=== PATIENT | male | born 1960 | race Caucasian/White ===

== ENCOUNTER → 2018-08-29 | Outpatient (CLI) | payer OTHER | END | disposition home or self-care (01) | LOC: RAD 10:37 | PROVIDERS: ATTEND Family Medicine | DX: J90 Pleural effusion, not elsewhere classified (principal); Z87.891 Personal history of nicotine dependence; I50.9 Heart failure, unspecified | CPT/HCPCS: 71046 ==

== ENCOUNTER 2019-09-25 10:46 | Outpatient (CLI) | payer BC | END 2019-09-25 23:59 | disposition home or self-care (01) | LOC: RAD 10:46 | PROVIDERS: ATTEND Family Medicine | DX: R05 Cough (principal); I51.7 Cardiomegaly; M47.814 Spondylosis without myelopathy or radiculopathy, thoracic region | CPT/HCPCS: 71046 ==

== ENCOUNTER 2019-10-05 12:30 | Inpatient (IN) | payer BC ==
[~2019-10-05] VITALS: Ht 182.9 cm; Wt 115.1 kg
[2019-10-05 13:36] LABS: ALBUMIN 2.6 g/dL (3.4-5.0); ANION GAP 3 mmol/L (5-15); CALCIUM 8.2 mg/dL (8.5-10.1); CHLORIDE 111 mmol/L (98-107); CREATININE 1.76 mg/dL (0.7-1.3)
[2019-10-05 13:40] LABS: TROPONIN I 0.053 ng/mL (0.000-0.045)
[2019-10-05 14:07] LABS: MICROSCOPIC AUTO
--- NOTE | 2019-10-05 14:07 | NUR ---
REHABILITATION SPECIALIST: PT AMBULATORY WITH STEADY GAIT TO ROOM AT THIS TIME.
[2019-10-05 14:20] LABS: BASOPHILS # (AUTO) 0.01 x10^3/uL (0-0.1); BASOPHILS % (AUTO) 0 % (0-1); EOSINOPHILS # (AUTO) 0.18 x10^3/uL (0-0.4); EOSINOPHILS % (AUTO) 3 % (1-7); LYMPHOCYTES # (AUTO) 1.42 x10^3/uL (1-3.4); LYMPHOCYTES % (AUTO) 22 % (22-44); MD NO; MEAN CORPUSCULAR HEMOGLOBIN 29.5 pg (27.5-34.5); MEAN CORPUSCULAR VOLUME 89.4 fL (81-97); MEAN PLATELET VOLUME 10.3 fL (7.4-10.4); MONOCYTES # (AUTO) 0.65 x10^3/uL (0.2-0.8); MONOCYTES % (AUTO) 10 % (2-9); NEUTROPHILS # (AUTO) 4.28 x10^3/uL (1.8-6.8); NEUTROPHILS % (AUTO) 65 % (42-75); PLATELET COUNT 201 x10^3/uL (130-400); RED BLOOD COUNT 4.16 x10^6/uL (4.38-5.82); RED CELL DISTRIBUTION WIDTH 15.3 % (9.4-14.8)
--- NOTE | 2019-10-05 14:40 | NUR ---
FIRST CONTACT WITH PT. PT C/O SWELLING TO BOTH LEGS HAS MOVED TO BOTH TESTICLES STARTING FRI. PT DENIES ANY OTHER SYMPTOMS. PT'S AOX4. RESPS EVEN AND UNLABORED. BP/SPO2 MONITORS IN PLACE. CALL LIGHT WITHIN REACH.
[2019-10-05] MEDS ORDERED: METF500T17 PO (14:42)
[2019-10-05] MEDS ORDERED: GLIP10TA13 PO (14:43)
[2019-10-05] MEDS ORDERED: BENA10TA6 PO (14:44)
[2019-10-05] MEDS ORDERED: FENO145T32 PO (14:44)
[2019-10-05] MEDS ORDERED: FURO20TA3 PO (14:45)
--- NOTE | 2019-10-05 14:57 | NUR ---
PT AMB TO BR WITH STEADY GAIT.
[2019-10-05] MEDS ORDERED: SODIUM CHLORIDE FLUSH 10ML SYR IVF PRN (16:00)
[2019-10-05] MEDS ORDERED: ACETAMINOPHEN 325 MG TABLET PO PRN (16:00)
[2019-10-05] MEDS ORDERED: DEXTROSE 50%, 50ML SYRINGE IVPush PRN (16:00)
[2019-10-05] MEDS: INSULIN LISPRO 100 UNITS/ML, PEN SQ-INSULIN SCH ×2 (16:00→21:17)
[2019-10-05] MEDS ORDERED: ONDANSETRON ODT 4 MG PO PRN (16:00)
[2019-10-05] MEDS ORDERED: ONDANSETRON 2MG/ML, 2ML IVPush PRN (16:00)
[2019-10-05] MEDS ORDERED: morphine SULFATE 10 MG/ML, 1ML IVPush PRN (16:00)
[2019-10-05] MEDS ORDERED: GLUCAGON 1 MG IM PRN (16:00)
[2019-10-05] MEDS ORDERED: BACLOFEN 10 MG TABLET PO PRN (16:00)
[2019-10-05] MEDS ORDERED: hydrALAzine 20 MG/ML, 1ML IVPush PRN (16:00)
[2019-10-05] MEDS ORDERED: DEXTROSE 4 GM TAB.CHEW PO PRN (16:00)
[2019-10-05] MEDS ORDERED: HEPARIN 5,000 UNITS/ML, 1ML ONE (16:24)
[2019-10-05] MEDS: HEPARIN 5,000 UNITS/ML, 1ML SQ SCH (16:31)
--- NOTE | 2019-10-05 16:32 | NUR ---
PT MEDICATED PER EMAR. PT TOLERATED WELL.
--- NOTE | 2019-10-05 16:32 | NUR ---
BG 84 AT THIS TIME. NO INSULIN NEEDED.
--- NOTE | 2019-10-05 16:36 | NUR ---
WARM BLACKETS GIVEN AT THIS TIME.
--- NOTE | 2019-10-05 17:19 | NUR ---
PT AMBULATES WELL TO BATHROOM INDEPENDENTLY.
--- NOTE | 2019-10-05 17:26 | NUR ---
report given to hayley suárez. all questions answered.
[2019-10-05] MEDS: FUROSEMIDE 40 MG/4 ML IV SCH (18:16)
[2019-10-05 19:47] VITALS: BP 177/77
[2019-10-05] MEDS: SODIUM CHLORIDE FLUSH 10ML SYR IVF SCH (20:39)
[2019-10-05] MEDS: AMLODIPINE 5 MG TABLET PO SCH (20:39)
[2019-10-06] MEDS: HEPARIN 5,000 UNITS/ML, 1ML SQ SCH ×3 (03:00→17:39)
[2019-10-06 04:17] VITALS: BP 150/72
[2019-10-06] MEDS ORDERED: EMPA25TA PO (06:07)
[2019-10-06 06:52] LABS: BASOPHILS # (AUTO) 0.02 x10^3/uL (0-0.1); BASOPHILS % (AUTO) 0 % (0-1); EOSINOPHILS # (AUTO) 0.16 x10^3/uL (0-0.4); EOSINOPHILS % (AUTO) 3 % (1-7); LYMPHOCYTES # (AUTO) 1.46 x10^3/uL (1-3.4); LYMPHOCYTES % (AUTO) 23 % (22-44); MD NO; MEAN CORPUSCULAR HEMOGLOBIN 29.3 pg (27.5-34.5); MEAN CORPUSCULAR VOLUME 88.8 fL (81-97); MEAN PLATELET VOLUME 9.7 fL (7.4-10.4); MONOCYTES # (AUTO) 0.65 x10^3/uL (0.2-0.8); MONOCYTES % (AUTO) 10 % (2-9); NEUTROPHILS # (AUTO) 3.97 x10^3/uL (1.8-6.8); NEUTROPHILS % (AUTO) 64 % (42-75); PLATELET COUNT 182 x10^3/uL (130-400); RED BLOOD COUNT 3.91 x10^6/uL (4.38-5.82); RED CELL DISTRIBUTION WIDTH 15.4 % (9.4-14.8)
[2019-10-06 06:59] LABS: CHLORIDE 108 mmol/L (98-107)
[2019-10-06] MEDS: INSULIN LISPRO 100 UNITS/ML, PEN SQ-INSULIN SCH ×4 (07:00→21:00)
[2019-10-06 07:34] LABS: ANION GAP 5 mmol/L (5-15); CALCIUM 7.9 mg/dL (8.5-10.1); CREATININE 1.61 mg/dL (0.7-1.3)
[2019-10-06 07:50] VITALS: BP 152/72
[2019-10-06] MEDS: FUROSEMIDE 40 MG/4 ML IV SCH ×2 (10:13→17:39)
[2019-10-06] MEDS: SODIUM CHLORIDE FLUSH 10ML SYR IVF SCH ×2 (10:13→21:14)
[2019-10-06 13:15] VITALS: BP 158/85
[2019-10-06] MEDS: CARVEDILOL 3.125 MG TABLET PO SCH (17:40)
[2019-10-06 18:56] VITALS: BP 160/82
[2019-10-06 19:24] LABS: % IRON SATURATION 17 % (20-55); IRON LEVEL 47 mcg/dL (65-175); TOTAL IRON BINDING CAPACITY 283 mcg/dL (250-450)
[2019-10-06 19:27] LABS: TRANSFERRIN 243 mg/dL (200-360); TROPONIN I 0.054 ng/mL (0.000-0.045)
[2019-10-06] MEDS: DIPHENHYDRAMINE 50 MG CAPSULE PO PRN (21:13)
[2019-10-06] MEDS: AMLODIPINE 5 MG TABLET PO SCH (21:13)
[2019-10-07 01:37] VITALS: BP 149/75
[2019-10-07] MEDS: HEPARIN 5,000 UNITS/ML, 1ML SQ SCH ×4 (02:00→17:38)
[2019-10-07 05:35] LABS: BASOPHILS # (AUTO) 0.02 x10^3/uL (0-0.1); BASOPHILS % (AUTO) 0 % (0-1); EOSINOPHILS # (AUTO) 0.16 x10^3/uL (0-0.4); EOSINOPHILS % (AUTO) 3 % (1-7); LYMPHOCYTES # (AUTO) 1.76 x10^3/uL (1-3.4); LYMPHOCYTES % (AUTO) 31 % (22-44); MD NO; MEAN CORPUSCULAR HGB CONC 32.7 g/dL (33.2-36.2); MEAN CORPUSCULAR VOLUME 88.6 fL (81-97); MEAN PLATELET VOLUME 9.7 fL (7.4-10.4); MONOCYTES # (AUTO) 0.57 x10^3/uL (0.2-0.8); MONOCYTES % (AUTO) 10 % (2-9); NEUTROPHILS # (AUTO) 3.22 x10^3/uL (1.8-6.8); NEUTROPHILS % (AUTO) 56 % (42-75); PLATELET COUNT 195 x10^3/uL (130-400); RED BLOOD COUNT 4.02 x10^6/uL (4.38-5.82); RED CELL DISTRIBUTION WIDTH 15.4 % (9.4-14.8)
[2019-10-07 05:46] LABS: ANION GAP 6 mmol/L (5-15); CALCIUM 8.4 mg/dL (8.5-10.1); CHLORIDE 107 mmol/L (98-107)
[2019-10-07 05:51] LABS: CHOL/HDL RATIO 3.9; CHOLESTEROL, TOTAL 144 mg/dL (140-239); CREATININE 1.58 mg/dL (0.7-1.3); HDL CHOL % 26 % (26-37); HDL CHOLESTEROL (DIRECT) 37 mg/dL (40-60); LDL CHOLESTEROL,CALCULATED 73 mg/dL (54-169); TRIGLYCERIDES 172 mg/dL (50-200); VLDL CHOLESTEROL 34 mg/dL (0-25)
[2019-10-07] MEDS: CARVEDILOL 3.125 MG TABLET PO SCH (06:25)
[2019-10-07] MEDS: INSULIN LISPRO 100 UNITS/ML, PEN SQ-INSULIN SCH ×4 (08:31→22:01)
[2019-10-07 09:00] VITALS: BP 160/74
[2019-10-07] MEDS: SODIUM CHLORIDE FLUSH 10ML SYR IVF SCH ×2 (09:28→22:01)
[2019-10-07] MEDS: FUROSEMIDE 40 MG/4 ML IV SCH ×2 (09:28→17:39)
[2019-10-07] MEDS: IRON SUCROSE COMPLEX 100MG/5ML IV SCH (09:28)
[2019-10-07] MEDS: ASPIRIN 81 MG TABLET EC PO SCH (10:09)
[2019-10-07] MEDS: SPIRONOLACTONE 25 MG TABLET PO SCH (10:09)
[2019-10-07] MEDS: FENOFIBRATE 145 MG TABLET PO SCH (10:11)
[2019-10-07 13:55] VITALS: BP 153/79
[2019-10-07 14:59] LABS: ALBUMIN 2.5 g/dL (3.4-5.0); ANION GAP 7 mmol/L (5-15); CALCIUM 8.5 mg/dL (8.5-10.1); CHLORIDE 105 mmol/L (98-107); CREATININE 1.65 mg/dL (0.7-1.3)
[2019-10-07] MEDS: CARVEDILOL 6.25 MG TABLET PO SCH (17:39)
[2019-10-07 20:06] VITALS: BP 155/75
[2019-10-07] MEDS: DIPHENHYDRAMINE 50 MG CAPSULE PO PRN (22:01)
[2019-10-08 02:07] VITALS: BP 133/68
[2019-10-08] MEDS: HEPARIN 5,000 UNITS/ML, 1ML SQ SCH ×2 (02:07→11:00)
[2019-10-08] MEDS: CARVEDILOL 6.25 MG TABLET PO SCH (06:38)
[2019-10-08] MEDS: ASPIRIN 81 MG TABLET EC PO SCH (06:38)
[2019-10-08 07:00] VITALS: BP 147/77
[2019-10-08] MEDS: INSULIN LISPRO 100 UNITS/ML, PEN SQ-INSULIN SCH ×2 (07:00→11:12)
[2019-10-08] MEDS ORDERED: REGADENOSON 0.4 MG/5 ML SYRINGE ONE (08:36)
[2019-10-08 11:00] VITALS: BP 161/91
[2019-10-08] MEDS: FUROSEMIDE 40 MG/4 ML IV SCH (11:00)
[2019-10-08] MEDS ORDERED: LISINOPRIL 5 MG TABLET PO SCH (11:00)
[2019-10-08] MEDS: IRON SUCROSE COMPLEX 100MG/5ML IV SCH (11:00)
[2019-10-08] MEDS: SPIRONOLACTONE 25 MG TABLET PO SCH (11:01)
[2019-10-08] MEDS: FENOFIBRATE 145 MG TABLET PO SCH (11:01)
[2019-10-08] MEDS: SODIUM CHLORIDE FLUSH 10ML SYR IVF SCH (11:01)
[2019-10-08] MEDS ORDERED: SPIR25TA PO (14:22)
[2019-10-08] MEDS ORDERED: FURO20TA3 PO (14:22)
[2019-10-08] MEDS ORDERED: CARV12.52 PO (14:22)
[2019-10-08] MEDS ORDERED: ASPI81TA45 PO (14:22)
[2019-10-08] MEDS ORDERED: [UNRECOGNIZED DRUG - CODE] EXT (14:30)
[2019-10-08 15:13] VITALS: BP 154/82
[2019-10-08] MEDS ORDERED: CARVEDILOL 12.5 MG TABLET PO SCH (18:00)
[2019-10-09] MEDS ORDERED: FUROSEMIDE 40 MG TABLET PO SCH (07:30)
== END 2019-10-08 16:40 | disposition home or self-care (01) | DRG 682 ==
LOC: ED 15:35 → EDIP 15:36 → ED 17:05 → 5SO 17:49 → DCLOUNGE 10-08 16:12
PROVIDERS: ADMIT Hospitalist; ATTEND Hospitalist
DX: N17.9 Acute kidney failure, unspecified (principal); I50.43 Acute on chronic combined systolic (congestive) and diastolic (congestive) heart failure; I42.9 Cardiomyopathy, unspecified; I11.0 Hypertensive heart disease with heart failure; D64.9 Anemia, unspecified; E11.9 Type 2 diabetes mellitus without complications; E66.01 Morbid (severe) obesity due to excess calories; E88.09 Other disorders of plasma-protein metabolism, not elsewhere classified; I27.29 Other secondary pulmonary hypertension; R35.0 Frequency of micturition; R63.4 Abnormal weight loss; N50.89 Other specified disorders of the male genital organs; Z79.899 Other long term (current) drug therapy; Z68.34 Body mass index [BMI] 34.0-34.9, adult; Z83.3 Family history of diabetes mellitus; Z87.891 Personal history of nicotine dependence
CPT/HCPCS: 36415; 71046; 76770; 76870; 78452; 80048; 80061; 81001; 82040; 82043; 82728; 82962; 83540; 83550; 83880; 84155; 84156; 84165; 84166; 84443; 84466; 84484; 85025; 93005; 93017; 93306; 93356; 96372; G0378; J1644; J1756; J1940; J2785; A9502; J0360; J1815